=== PATIENT | male | born 1980 | race Caucasian/White ===

== ENCOUNTER 2022-02-26 14:39 | Emergency (ER) | payer OTHER, SELFPAY ==
[2022-02-26 14:43] VITALS: BP 142/90; PULSE 89; RESP 18; TEMP 36.3; O2SAT 99; BMI 28.8
--- NOTE | 2022-02-26 15:12 | DI.CT.S_ITS ---
PROCEDURE: CT ABDOMEN PELVIS W CON INDICATIONS: RLQ pain, nausea TECHNIQUE: After the administration of intravenous contrast, axial sections acquired from the lung bases to the pubic symphysis. Coronal and sagittal reformats were performed. For radiation dose reduction, the following was used: automated exposure control, adjustment of mA and/or kV according to patient size. COMPARISON: None. FINDINGS: These images demonstrate diffuse circumferential wall edema involving the cecum. There is a prominent diverticulum arising from the posterior cecal base measuring approximately 1.7 cm. This contains some hyperdense material trapped within the lumen of the diverticulum. Mild pericecal and Chelly diverticular fat stranding, most pronounced adjacent to the diverticulum. The appendix is normal. Prominent but not threshold enlarged right lower quadrant lymph nodes. Sigmoid diverticulosis. Remaining bowel unremarkable. Normal CT appearance of the liver, spleen, gallbladder, pancreas, adrenal glands, and kidneys. Nonaneurysmal abdominal aorta. Urinary bladder normal. No free pelvic fluid. Included portions of the lung bases are clear. No acute osseous finding. IMPRESSION: Diffuse circumferential cecal wall thickening/edema with an associated diverticulum and adjacent pericecal/Chelly diverticular fat stranding. Findings are suggestive of right-sided diverticulitis, versus another source of cecal inflammation/infection. Follow-up to document both clinical and radiographic resolution is recommended to help exclude an underlying mass. Dictated by: Sam Fournier M.D. on 02/26/2022 at 16:00 Approved by: Sam Fournier M.D. on 02/26/2022 at 16:03
[2022-02-26 15:14] LABS: Add Manual Diff / Slide Review NO; Basophils Absolute Auto 100 /uL (0-100); Basophils Percent Auto 0.3 % (0-2); Eosinophils Absolute Auto 100 /uL (0-450); Eosinophils Percent Auto 0.6 % (2-4); Hematocrit 39.9 % (41-53); Hemoglobin 14.1 g/dL (13.5-17.5); Lymphocytes Absolute Auto 2100 /uL (1100-4500); Lymphocytes Percent Auto 14.4 % (25-40); Mean Corpuscular HGB Conc 35.3 % (30-36); Mean Corpuscular Volume 87.8 fL (80-100); Monocytes Absolute Auto 1100 /uL (0-900); Monocytes Percent Auto 7.1 % (3-14); Neutrophils Absolute Auto 11600 /uL (1500-7000); Neutrophils Percent Auto 77.6 % (50-75); Platelet Count 311 X10^3/uL (150-400); Red Blood Cell Count 4.55 X10^6/uL (4.5-5.9); Red Cell Distribution Width 12.4 % (11.6-14.8); White Blood Cell Count 14.9 X10^3/uL (4.5-11.0)
--- NOTE | 2022-02-26 15:14 | ED.ABDPAIN ---
HPI - Abdominal Pain General Chief Complaint: Abdominal Pain Stated Complaint: Abd pain- right side. Sent by [facility] Time Seen by Provider: 02/26/22 15:14 Source: patient Mode of arrival: Ambulatory Limitations: no limitations History of Present Illness HPI narrative: This is a 41-year-old male comes in with complaint of abdominal pain started out swerve generalized localized low bit to the right lower quadrant but still he her 3rd of all over. Started last couple days been slowly getting worse. Had right flank pain but did not started his flank. States it was sort of a sudden onset but has been worsening. No fevers or chills. He has had some nausea occasional vomiting but not persistent. He has had normal bowel movements with no black or bloody stools. No dysuria urgency or frequency no dark urine or hematuria. He states he is urinating regularly. He has not had similar symptoms in the past. He has history of hypertension. He denies surgeries besides mesh for hernia repair. No known drug allergies. Related Data Previous Rx's Medication Instructions Recorded amoxicillin 875 mg-potassium 1 tab PO Q12H #20 tab 02/26/22 clavulanate 125 mg tablet Allergies Allergy/AdvReac Type Severity Reaction Status Date / Time No Known Drug Allergies Allergy Verified 02/26/22 14:47 Review of Systems Review of Systems ROS Unobtainable: All systems reviewed & are unremarkable except as noted in HPI and below Patient History Social History Smoking Status: Never smoker Smoking Status: Never smoker alcohol intake frequency: a few times a week Alcohol type: beer Substance Use Type: does not use Exam Narrative Exam Narrative: GENERAL: Alert and oriented x three, in moderate distress. HEENT: Head normocephalic, atraumatic, EOMI, pupils reactive, face symmetric, moist mucous membranes NECK: Supple, full range of motion CARDIOVASCULAR: Regular rate and rhythm without murmurs, rubs or gallops. RESPIRATORY: Breath sounds equal bilaterally, no wheezes rales or rhonchi. ABDOMEN: Soft, generalized tenderness greatest at the right lower quadrant. Normoactive bowel sounds all 4 quadrants. No guarding or rebound, rigidity, no mass : No CVA tenderness EXTREMITIES: Normal range of motion, no clubbing or edema. Neurovascularly intact NEUROLOGICAL: Cranial nerves II through XII grossly intact. Moving all extremities. Normal gait. SKIN: Warm, dry, no petechiae, no rashes or lesions. Initial Vital Signs Initial Vital Signs: Vital Signs Temperature 97.3 F L 02/26/22 14:43 Pulse Rate 89 02/26/22 14:43 Respiratory Rate 18 02/26/22 14:43 Blood Pressure 142/90 H 02/26/22 14:43 Pulse Oximetry 99 02/26/22 14:43 Course Orders Ordered: ED Orders 02/26/22 14:50 Complete Blood Count AUTO DIFF Stat Comprehensive Metabolic Panel Stat Lipase Stat 02/26/22 15:12 CT abdomen pelvis w con Stat 02/26/22 16:50 Urine Microscopic Stat Discontinued Medications Amoxicillin/Clavulanate Potassium (Amoxicillin/Clav 875/125 Mg) 1 tab PO NOW ONE Stop: 02/26/22 16:43 Last Admin: 02/26/22 16:53 Dose: 1 tab Documented by: CHRISSY Reevaluation(s) Reevaluation #1: Return to evaluate patient is still quite uncomfortable continues to defer anything for pain. Discussed his findings today, plan for Augmentin to treat potential right-sided diverticulitis, patient recommend a colonoscopy after symptoms have improved. Discussed return precautions. All questions answered. Vital Signs Vital signs: Vital Signs - 8 hr 02/26/22 14:43 02/26/22 17:26 Temperature 97.3 F L Pulse Rate 89 86 Respiratory Rate 18 16 Blood Pressure 142/90 H 127/88 Pulse Oximetry 99 100 MDM - Abdominal Pain Lab Data Result diagrams: 02/26/22 14:50 02/26/22 14:50 Labs: Lab Results 02/26/22 02/26/22 02/26/22 Range/Units 14:50 14:50 16:50 WBC 14.9 H (4.5-11.0) X10^3/uL RBC 4.55 (4.5-5.9) X10^6/uL Hgb 14.1 (13.5-17.5) g/dL Hct 39.9 L (41-53) % MCV 87.8 (80-100) fL MCH 31.0 (26-34) PG MCHC 35.3 (30-36) % RDW 12.4 (11.6-14.8) % Plt Count 311 (150-400) X10^3/uL Neut % (Auto) 77.6 H (50-75) % Lymph % (Auto) 14.4 L (25-40) % Millard % (Auto) 7.1 (3-14) % Eos % (Auto) 0.6 L (2-4) % Baso % (Auto) 0.3 (0-2) % Neut # (Auto) 52986 H (3493-6347) /uL Lymph # (Auto) 2100 (5585-9666) /uL Millard # (Auto) 1100 H (0-900) /uL Eos # (Auto) 100 (0-450) /uL Baso # (Auto) 100 (0-100) /uL Sodium 140 (137-145) mmol/L Potassium 4.0 (3.4-5.1) mmol/L Chloride 103 (98-107) mmol/L Carbon Dioxide 27 (22-32) mmol/L BUN 11 (9-20) mg/dL Creatinine 0.63 L (0.66-1.25) mg/dL Estimated GFR > 60.0 (>60) mL/min BUN/Creatinine Ratio 17.5 (6-22) Glucose 94 (70-100) mg/dL Calcium 9.4 (8.4-10.2) mg/dL Total Bilirubin 1.0 (0.2-1.3) mg/dL AST 27 (17-59) IU/L ALT 22 (<50) IU/L Alkaline Phosphatase 57 (38-126) U/L Total Protein 8.5 H (6.3-8.2) g/dL Albumin 4.9 (3.5-5.0) g/dL Globulin 3.6 (1.7-4.1) g/dL Albumin/Globulin Ratio 1.4 (1.0-2.8) Lipase 42 (23-300) U/L Urine RBC 10-30/hpf H (0-5/HPF) Urine WBC None seen (0-5/HPF) Ur Squamous Epith Cells None seen (0-5/HPF) Urine Bacteria None seen (None) Ur Culture Indicated? Cult not indicated Point of care testing: Urine Dip Bedside Urine Glucose Negative Bedside Urine Bilirubin - Negative Bedside Urine Ketone - Negative Urine Specific [place] 1.010 Bedside Urine Occult Blood +++ Bedside Urine pH 6.0 Bedside Urine Protein - Negative Bedside Urine Urobilinogen - Negative Bedside Urine Nitrite - Negative Bedside Urine Leukocytes - Negative Esterase Imaging Data CT scan - abdomen/pelvis: Radiologist's Impression: [address] [address] [address] Scan Report Signed Patient: Benedict Garza MR#: [id number] : 1980 Acct:[id number] Age/Sex: 41 / M Date of Service: 02/26/22 Loc: ED Accession Number: [id number] ?? Procedure: CT abdomen pelvis w con Ordering Provider: Sondra Herbert D.O. PROCEDURE:? CT ABDOMEN PELVIS W CON ? INDICATIONS:? RLQ pain, nausea ? TECHNIQUE:? After the administration of intravenous contrast, axial sections acquired from the lung bases to the pubic symphysis.? Coronal and sagittal reformats were performed.? For radiation dose reduction, the following was used:? automated exposure control, adjustment of mA and/or kV according to patient size.? ? COMPARISON:? None. ? FINDINGS:? ? These images demonstrate diffuse circumferential wall edema involving the cecum.? There is a prominent diverticulum arising from the posterior cecal base measuring approximately 1.7 cm.? This contains some hyperdense material trapped within the lumen of the diverticulum.? Mild pericecal and Chelly diverticular fat stranding, most pronounced adjacent to the diverticulum.? The appendix is normal.? Prominent but not threshold enlarged right lower quadrant lymph nodes.? Sigmoid diverticulosis.? Remaining bowel unremarkable. ? Normal CT appearance of the liver, spleen, gallbladder, pancreas, adrenal glands, and kidneys.? Nonaneurysmal abdominal aorta.? Urinary bladder normal.? No free pelvic fluid.? Included portions of the lung bases are clear.? No acute osseous finding. ? IMPRESSION: ? Diffuse circumferential cecal wall thickening/edema with an associated diverticulum and adjacent pericecal/Chelly diverticular fat stranding.? Findings are suggestive of right-sided diverticulitis, versus another source of cecal inflammation/infection.? Follow-up to document both clinical and radiographic resolution is recommended to help exclude an underlying mass. ? ? Dictated by: Sam Fournier M.D. on 02/26/2022 at 16:00 ? ? Approved by: Sam Fournier M.D. on 02/26/2022 at 16:03?? MDM Narrative Medical decision making narrative: This is a 41-year-old male comes with complaint of abdominal pain localized to the right size in the sort of generalized. He is quite tender in the right lower quadrant compared to rest of his abdomen. Labs and CT imaging were obtained. Patient has leukocytosis, he has inflammation in the cecum concerning for possible right-sided diverticulitis, appendix appears normal no other acute changes no signs of perforation. Patient started on oral antibiotics, offered pain medication options but he defers, offered antinausea medications but defers. Return precautions discussed. Because of the atypical location based on patient's history recommended colonoscopy in the future after his symptoms have improved for evaluation of the area. All questions answered. Discharge Plan Departure Patient Disposition: Home Clinical Impression: Diverticulitis Instructions: DI for Diverticulitis Activity Restrictions/Additional Instructions: Your imaging shows inflammation of the cecum, your appendix is normal but suggests a right-sided diverticulitis. You should have follow-up for colonoscopy after symptoms have resolved in the next 1-2 months for evaluation. You may take Tylenol up to a 1000 mg every 8 hours and/or ibuprofen up to 800 mg every 8 hours as needed for pain. Take oral antibiotics until gone. Take 1 tablet twice daily Prescription sent to [facility] Please return for fevers, rapidly worsening pain, persistent vomiting, black or bloody stools or other new or concerning symptoms. Prescriptions: New amoxicillin-pot clavulanate 875-125 mg tablet 1 tab PO Q12H Qty: 20 0RF
[2022-02-26 15:25] LABS: Alanine Aminotransferase 22 IU/L (<50); Albumin 4.9 g/dL (3.5-5.0); Albumin Globulin Ratio 1.4 (1.0-2.8); Alkaline Phosphatase 57 U/L (38-126); Aspartate Aminotransferase 27 IU/L (17-59); BUN Creatinine Ratio 17.5 (6-22); Blood Urea Nitrogen 11 mg/dL (9-20); Calcium 9.4 mg/dL (8.4-10.2); Carbon Dioxide 27 mmol/L (22-32); Chloride 103 mmol/L (98-107); Estimated Glomerular Filt Rate > 60.0 mL/min (>60); Globulin 3.6 g/dL (1.7-4.1); Glucose 94 mg/dL (70-100); HEMOLYSIS < 15 (0-50); Lipase 42 U/L (23-300); Sodium 140 mmol/L (137-145); Total Protein 8.5 g/dL (6.3-8.2)
[2022-02-26] MEDS: AMOXICILLIN/CLAV 875/125 MG 1 TAB PO (16:53)
[2022-02-26 17:12] LABS: Bacteria Urine None Seen; Culture Indicated Urine Cult Not Indicated; RBC Urine 10-30/HPF (0-5/HPF); Squamous Epithelial Cell Urine None Seen (0-5/HPF); WBC Urine None Seen (0-5/HPF)
[2022-02-26 17:26] VITALS: BP 127/88; PULSE 86; RESP 16; O2SAT 100
== END 2022-02-26 17:27 | disposition home or self-care (01) ==
PROVIDERS: Emergency Provider Emergency Medicine
DX: K57.32 Diverticulitis of large intestine without perforation or abscess without bleeding (principal)
CPT/HCPCS: 36415; 74177; 80053; 81003; 81015; 83690; 85025; 99283; 99284; Q9967

== ENCOUNTER 2022-06-17 06:48 | Day surgery (SDC) | payer OTHER, SELFPAY ==
[2022-06-17 07:14] VITALS: BP 134/94; PULSE 66; RESP 16; TEMP 36.4; O2SAT 99; BMI 28.7
[2022-06-17] MEDS: SODIUM CHLORIDE 0.9% 1,000 ML 84 ML IV (07:19)
[2022-06-17 07:25] LABS: COVID19 -Nasal RAPID Negative (Negative)
--- NOTE | 2022-06-17 08:00 | PM.HP.1 ---
History of Present Illness History of Present Illness Date Patient Seen: 06/17/22 Time Patient Seen: 08:01 Chief complaint: SDC Narrative: I reviewed my office note. No problems since the visit. Patient History Family & Social History Social History: household members spouse Tobacco & Substance use: Smoking Status Never smoker alcohol intake current alcohol intake frequency a few times a month Substance Use Type does not use Meds Home Medications and Allergies Home Medications Medication Instructions Recorded Confirmed Type lisinopril 10 mg 06/17/22 History Allergies Allergy/AdvReac Type Severity Reaction Status Date / Time No Known Drug Allergies Allergy Verified 06/17/22 07:20 Review of Systems Review of Systems ROS: Yes All systems reviewed with the patient and are negative except as otherwise documented Exam Vital Signs (past 8 hours): - 06/17/22 07:14 Temperature 97.5 F L Pulse Rate 66 Respiratory Rate 16 Blood Pressure 134/94 H Pulse Oximetry 99 Oxygen Delivery Method Room Air Oxygen Delivery Method Room Air Const General: cooperative HENMT Head: normal to inspection Eyes General: appearance normal, both eyes and all related structures Neck Neck: normal visual inspection Chest Chest: normal inspection of the chest Resp Effort & Inspection: normal respiratory effort Cardio Rate: regular rate GI Inspection: normal to inspection Skin General: no rashes or lesions noted Neuro General: patient alert and patient awake Extrem General: normal to inspection and no pedal edema Psych Appearance: grossly normal Objective Labs Labs: Laboratory Results - last 24 hr 06/17/22 07:09 SARS-CoV-2 (PCR) Negative Assessment & Plan Assessment & Plan narrative: 41-year-old with a history of right-sided diverticulitis involving the cecum. Diagnostic colonoscopy is pursued today. Time Spent With Patient Critical Care time: I spent a total of [] minutes of critical care time on this patient's care today; this time is exclusive of procedural time.
--- NOTE | 2022-06-17 08:02 | PM.PREOP ---
Pre-operative Note COVID-19 COVID-19 status: Negative Result date/Date tested (Pos, Neg/Pending): 06/17/22 Criteria for continued procedure: Possibility delay results in more complex future surgery or treatment Interval Note History & Physical reviewed/Exam performed by Physician: Yes Changes to H&P: No ASA Class (for procedural sedation): II
--- NOTE | 2022-06-17 08:22 | P.OP.COLON_ITS ---
Operative Date/Time/Diagnoses Date of procedure: 06/17/22 Time of procedure: 08:23 Pre-op diagnosis: Right-sided diverticulitis Post-op diagnosis: same Procedure & Clinicians Study performed: Colonoscopy Same procedure as scheduled: Yes Indications: History of Right-sided diverticulitis Surgeon: Soy Fortune Procedure Notes SCOAP/Timeout: Done Procedure in detail: After the risks and benefits were explained, written and verbal informed consent was obtained. The patient was brought into the procedure room and placed into the left lateral decubitus position. Please see nurse silver wrapper notes for sedation details. Digital rectal examination was accomplished. The scope was introduced into the patient and advanced under direct visualization to the cecum as identified by the appendiceal orifice and ileocecal valve. The scope was slowly withdrawn to carefully examine the mucosa for any defects or lesions. Comprehensive imaging was accomplished throughout the rectum including the dentate line. The colon was decompressed, the scope was then removed from the patient who tolerated the procedure well. Adult colonoscope Bowel prep adequate Scope withdrawal time: 7 minutes Sedation minutes: 14 Specimen(s): none sent Complications: none Impression: The patient had scattered diverticula in the transverse and ascending colon. I did not appreciate any obvious diverticulae in the cecum. There were a couple of small diverticula associated with the ileocecal valve. No significant polyps mass lesions or inflammatory features identified throughout. Grade 1 hemorrhoids were noted on direct views. Endoscopic diagnosis 1. Right colon diverticulosis 2. Grade 1 hemorrhoids Post-procedure Plan for aftercare: 1. Fiber based bowel regimen for soft regular movements. 2. Repeat colonoscopy 10 years for colon cancer screening. Disposition: PACU
[2022-06-17 08:25] VITALS: BP 108/73; PULSE 64; RESP 15; TEMP 36.2; O2SAT 97
[2022-06-17 08:30] VITALS: BP 121/68; PULSE 70; RESP 12; O2SAT 99
[2022-06-17 08:35] VITALS: BP 113/80; PULSE 65; RESP 15; O2SAT 99
[2022-06-17 08:40] VITALS: BP 117/82; PULSE 60; RESP 19; O2SAT 99
[2022-06-17 08:41] VITALS: BP 118/79; PULSE 61; RESP 16; O2SAT 99
== END 2022-06-17 08:55 | disposition home or self-care (01) ==
PROVIDERS: Referring Provider Internal Medicine Gastroenterology; Visit Provider Internal Medicine Gastroenterology
PROC: 0DJD8ZZ Inspection of Lower Intestinal Tract, Via Natural or Artificial Opening Endoscopic (ICD-10-PCS; CPT 45378; principal; 2022-06-17 08:00)
DX: Z09 Encounter for follow-up examination after completed treatment for conditions other than malignant neoplasm (principal); Z87.19 Personal history of other diseases of the digestive system; Z20.822 Contact with and (suspected) exposure to COVID-19; K57.30 Diverticulosis of large intestine without perforation or abscess without bleeding
CPT/HCPCS: 45378; 87635; J2704

== ENCOUNTER 2022-10-18 11:50 | Emergency (ER) | payer OTHER, SELFPAY ==
[2022-10-18 11:53] VITALS: BP 141/83; PULSE 71; RESP 18; TEMP 36.2; O2SAT 99; BMI 28.2
[2022-10-18] MEDS: SODIUM CHLORIDE 0.9% 1,000 ML 1000 ML IV (12:18)
[2022-10-18] MEDS: ONDANSETRON 4 MG/2 ML INJ IV (12:18)
[2022-10-18 12:26] LABS: Add Manual Diff / Slide Review NO; Basophils Absolute Auto 0 /uL (0-100); Basophils Percent Auto 0.3 % (0-2); Eosinophils Absolute Auto 100 /uL (0-450); Eosinophils Percent Auto 0.8 % (2-4); Hematocrit 40.8 % (41-53); Hemoglobin 14.2 g/dL (13.5-17.5); Lymphocytes Absolute Auto 1600 /uL (1100-4500); Lymphocytes Percent Auto 11.8 % (25-40); Mean Corpuscular HGB Conc 34.7 % (30-36); Mean Corpuscular Hemoglobin 30.7 PG (26-34); Mean Corpuscular Volume 88.3 fL (80-100); Monocytes Absolute Auto 1000 /uL (0-900); Monocytes Percent Auto 7.6 % (3-14); Neutrophils Absolute Auto 10500 /uL (1500-7000); Neutrophils Percent Auto 79.5 % (50-75); Platelet Count 315 X10^3/uL (150-400); Red Blood Cell Count 4.62 X10^6/uL (4.5-5.9); Red Cell Distribution Width 12.5 % (11.6-14.8); White Blood Cell Count 13.2 X10^3/uL (4.5-11.0)
[2022-10-18 12:34] LABS: Alanine Aminotransferase 25 IU/L (<50); Albumin 4.5 g/dL (3.5-5.0); Albumin Globulin Ratio 1.2 (1.0-2.8); Alkaline Phosphatase 57 U/L (38-126); Aspartate Aminotransferase 23 IU/L (17-59); BUN Creatinine Ratio 18.8 (6-22); Bilirubin Total 1.2 mg/dL (0.2-1.3); Blood Urea Nitrogen 13 mg/dL (9-20); Calcium 9.2 mg/dL (8.4-10.2); Carbon Dioxide 27 mmol/L (22-32); Chloride 100 mmol/L (98-107); Estimated Glomerular Filt Rate > 60 mL/min (>60); Globulin 3.8 g/dL (1.7-4.1); Glucose 103 mg/dL (70-100); HEMOLYSIS < 15 (0-50); Lipase 56 U/L (23-300); Potassium 3.6 mmol/L (3.4-5.1); Sodium 139 mmol/L (137-145); Total Protein 8.3 g/dL (6.3-8.2)
[2022-10-18 14:15] VITALS: BP 132/81; PULSE 62; RESP 18; TEMP 36.4; O2SAT 100
--- NOTE | 2022-10-18 14:29 | ED_ITS ---
HPI - General Adult General Chief complaint: Abdominal Pain Stated complaint: lower LT quad abd pain t-4 Time Seen by Provider: 10/18/22 13:59 Source: patient Mode of arrival: Ambulatory Limitations: no limitations History of Present Illness HPI narrative: 41-year-old male who is here for evaluation of left-sided abdominal tenderness for the past couple days. He has had diverticulitis before but that was diagnos ed on the right side of his abdomen. He did have a CT scan to diagnose this. He states that he is never had diverticulitis on the left side however the discomfort on the left side is very similar to his prior diagnosis. Did have some constipation for which she took a laxative. Has had several loose bowel movements since then. That is not changed any of his abdominal pain. There has been no blood. No fevers. No urinary symptoms. Some vomiting initially but that has now resolved as well. Related Data Home Medications Medication Instructions Recorded Confirmed lisinopril 10 mg tablet 10 mg PO DAILY 10/18/22 10/18/22 Previous Rx's Medication Instructions Recorded ciprofloxacin HCl 500 mg tablet 500 mg PO BID 10 days #20 tabs 10/18/22 (Cipro) metronidazole 500 mg tablet 500 mg PO TID 10 days #30 tabs 10/18/22 ondansetron 4 mg disintegrating 4 mg PO Q6H PRN nausea and 10/18/22 tablet vomiting #10 tabs Allergies Allergy/AdvReac Type Severity Reaction Status Date / Time No Known Drug Allergies Allergy Verified 10/18/22 11:57 Review of Systems Constitutional Constitutional: Reports system reviewed and no additional complaints, except as documented Cardiovascular Cardiovascular: Reports system reviewed and no additional complaints, except as documented Respiratory Respiratory: Reports system reviewed and no additional complaints, except as documented Gastrointestinal Gastrointestinal: Reports system reviewed and no additional complaints, except as documented Genitourinary Genitourinary: Reports system reviewed and no additional complaints, except as documented Musculoskeletal Musculoskeletal: Reports system reviewed and no additional complaints, except as documented Integumentary/Breasts Skin/Breast: Reports system reviewed and no additional complaints, except as documented Neurologic Neurologic: Reports system reviewed and no additional complaints, except as documented Hematologic/Lymphatic On Anticoagulants: No Patient History Medical History Hypertension Social History household members: spouse Smoking Status: Never smoker alcohol intake: current Smoking Status: Never smoker alcohol intake frequency: a few times a month Alcohol type: beer Substance Use Type: does not use Exam Initial Vital Signs Initial Vital Signs: Vital Signs Temperature 97.1 F L 10/18/22 11:53 Pulse Rate 71 10/18/22 11:53 Respiratory Rate 18 10/18/22 11:53 Blood Pressure 141/83 H 10/18/22 11:53 Pulse Oximetry 99 10/18/22 11:53 Oxygen Delivery Method 10/18/22 11:53 HENMT Head: normal to inspection and normocephalic Resp Effort & Inspection: normal respiratory effort Auscultation: clear to auscultation bilaterally Cardio Rate: regular rate Rhythm: regular rhythm GI Palpation: soft, No firm, No guarding and tender (Left side abdomen) Back/Spine/Pelvis Back: No CVA tenderness Skin General: no rashes or lesions noted Neuro General: patient alert, patient awake and moves all extremities Extrem General: capillary refill normal Course Orders Ordered: ED Orders 10/18/22 12:05 Complete Blood Count AUTO DIFF Stat Comprehensive Metabolic Panel Stat Lipase Stat Discontinued Medications Sodium Chloride (Normal Saline 0.9%) 1,000 mls @ 1,000 mls/hr IV BOLUS ONE Stop: 10/18/22 13:11 Last Infusion: 10/18/22 13:14 Dose: 0 mls/hr Documented By: Admin: 10/18/22 12:18 Dose: 1,000 mls/hr Documented By: [facility] Ondansetron HCl (Ondansetron 4 Mg/2 Ml Inj) 4 mg IV NOW ONE Stop: 10/18/22 12:00 Last Admin: 10/18/22 12:18 Dose: 4 mg Documented By: [facility] Vital Signs Vital signs: Vital Signs - 8 hr 10/18/22 11:53 10/18/22 14:15 Temperature 97.1 F L 97.6 F Pulse Rate 71 62 Respiratory Rate 18 18 Blood Pressure 141/83 H 132/81 Pulse Oximetry 99 100 Oxygen Delivery Method Room Air Room Air Medical Decision Making Lab Data Lab results reviewed: Yes I reviewed the patient's lab results. Result diagrams: 10/18/22 12:05 10/18/22 12:05 Labs: Lab Results 10/18/22 10/18/22 Range/Units 12:05 12:05 WBC 13.2 H (4.5-11.0) X10^3/uL RBC 4.62 (4.5-5.9) X10^6/uL Hgb 14.2 (13.5-17.5) g/dL Hct 40.8 L (41-53) % MCV 88.3 (80-100) fL MCH 30.7 (26-34) PG MCHC 34.7 (30-36) % RDW 12.5 (11.6-14.8) % Plt Count 315 (150-400) X10^3/uL Neut % (Auto) 79.5 H (50-75) % Lymph % (Auto) 11.8 L (25-40) % Gordon % (Auto) 7.6 (3-14) % Eos % (Auto) 0.8 L (2-4) % Baso % (Auto) 0.3 (0-2) % Neut # (Auto) 52308 H (9707-2835) /uL Lymph # (Auto) 1600 (3857-7669) /uL Gordon # (Auto) 1000 H (0-900) /uL Eos # (Auto) 100 (0-450) /uL Baso # (Auto) 0 (0-100) /uL Sodium 139 (137-145) mmol/L Potassium 3.6 (3.4-5.1) mmol/L Chloride 100 (98-107) mmol/L Carbon Dioxide 27 (22-32) mmol/L BUN 13 (9-20) mg/dL Creatinine 0.69 (0.66-1.25) mg/dL Estimated GFR > 60 (>60) mL/min BUN/Creatinine Ratio 18.8 (6-22) Glucose 103 H (70-100) mg/dL Calcium 9.2 (8.4-10.2) mg/dL Total Bilirubin 1.2 (0.2-1.3) mg/dL AST 23 (17-59) IU/L ALT 25 (<50) IU/L Alkaline Phosphatase 57 (38-126) U/L Total Protein 8.3 H (6.3-8.2) g/dL Albumin 4.5 (3.5-5.0) g/dL Globulin 3.8 (1.7-4.1) g/dL Albumin/Globulin Ratio 1.2 (1.0-2.8) Lipase 56 (23-300) U/L [facility] Narrative Medical decision making narrative: Leukocytosis of 13. He has had diverticulitis in the past but he states that it was on his right side. He states the pain that he is having right now was on the right side of his abdomen he would be convinced that this was a reoccurrence of his diverticulitis. He is a benign exam. We did discuss the risks and benefits of obtaining a CT scan today for definitive diagnosis and also to evaluate for potential complications such as abscess or perforation versus just treating with antibiotics. After this discussion the patient opted just to be treated with antibiotics. I agree with this decision. Will send home with antibiotics and strict return precautions. He expressed understanding and agreement. Discharge Plan Departure Patient Disposition: Home Clinical Impression: Diverticulitis, Abdominal pain Instructions: DI for Diverticulitis, DI for Abdominal Pain-Adult Activity Restrictions/Additional Instructions: I do recommend that you take the antibiotics as directed. [facility] Follow-up with your medical department. Return to the emergency department for any new or worsening symptoms. Prescriptions: New ciprofloxacin HCl [Cipro] 500 mg tablet 500 mg PO BID 10 Days Qty: 20 0RF metronidazole 500 mg tablet 500 mg PO TID 10 Days Qty: 30 0RF ondansetron 4 mg tablet,disintegrating 4 mg PO Q6H PRN (Reason: nausea and vomiting) Qty: 10 0RF No Action lisinopril 10 mg Tablet 10 mg PO DAILY Referrals: ProviderVishnu [Primary Care Provider] - Visit Report Forms: Patient Portal/API
== END 2022-10-18 14:42 | disposition home or self-care (01) ==
PROVIDERS: Emergency Provider Emergency Medicine
DX: K57.92 Diverticulitis of intestine, part unspecified, without perforation or abscess without bleeding (principal); R10.32 Left lower quadrant pain
CPT/HCPCS: 36415; 80053; 83690; 85025; 96361; 96374; 99284; J2405

== ENCOUNTER → 2022-11-14 09:30 | Outpatient (CLI) | payer OTHER, SELFPAY ==
--- NOTE | 2022-11-14 09:35 | DI.RAD.S_ITS ---
PROCEDURE: FL SHOULDER INJECTION MR/CT LT INDICATIONS: Pain in left shoulder COMPARISON: None. TECHNIQUE: The indications, alternatives, benefits, risks, and complications of the procedure were explained to the patient. Written informed consent was obtained and placed in the chart. The shoulder was examined fluoroscopically and a site for needle placement chosen for entry into the glenohumeral joint from an anterior approach. The skin was prepped and draped in a sterile fashion, and 1% lidocaine infiltrated from skin down to joint capsule. A spinal needle was inserted into the glenohumeral joint, and a small amount of iodinated contrast media injected to confirm intra-articular placement of the needle tip. This was followed by approximately 12 mL dilute solution of a gadolinium containing MR contrast agent. The needle was removed and a dressing was applied. The patient was given postprocedural instructions and sent to the MR suite for MR imaging. FINDINGS: A single fluoroscopic spot image demonstrates intra-articular location of injected iodinated contrast. IMPRESSION: Successful fluoroscopically guided administration of dilute Gadolinium solution into the shoulder joint for MR arthrogram. Dictated by: Roselyn Subramanian M.D. on 11/14/2022 at 10:29 Approved by: Roselyn Subramanian M.D. on 11/14/2022 at 10:30
--- NOTE | 2022-11-14 09:35 | DI.MRI.S_ITS ---
PROCEDURE: MR SHOULDER LT W CON INDICATIONS: Pain in left shoulder TECHNIQUE: After the administration of 12 mL of dilute intra-articular Gadolinium contrast, oblique coronal T1 and T2 spin echo with fat saturation, oblique sagittal T1 spin echo with and without fat saturation, oblique sagittal T2 fast spin echo with fat saturation, axial T1 spin echo with fat saturation through the shoulder. COMPARISON: None. FINDINGS: Image quality: Excellent. Rotator cuff: Low-grade articular and bursal surface partial thickness tear involving distal supraspinatus at its insertion on the humeral head is seen extending to musculotendinous junction. Distal infraspinatus tendon is intact. No full-thickness rotator cuff tendon rupture. Distal subscapularis tendon is intact. No significant rotator cuff muscle atrophy on sagittal images. Bones and bursae: No bone marrow contusions or fractures. No acromioclavicular joint degeneration. The acromion demonstrates conventional anatomy, without an os acromiale. Capsule and soft tissues: Signal abnormality and contour irregularity with contrast extension in superior anterior labrum at 1 to 2 o'clock position is seen suggestive of superior anterior labral tear. The glenohumeral ligaments appear intact. The long head of the biceps tendon demonstrates normal location and morphology. The rotator interval appears normal, without fibrosis. The coracohumeral ligament is of normal thickness. No intra-articular bodies. IMPRESSION: 1. Low-grade articular and bursal surface partial thickness tear involving distal supraspinatus extending to musculotendinous junction. Distal infraspinatus and subscapularis tendons are intact. No full-thickness rotator cuff tendon rupture. 2. No marrow edema. No fracture or dislocation. No gross intra-articular loose bodies. 3. Suggestion of subtle superior anterior labral tear at 1-2 o'clock position. Dictated by: Raj Schaffer M.D. on 11/14/2022 at 12:02 Approved by: Raj Schaffer M.D. on 11/14/2022 at 12:04
== END ==
PROVIDERS: Referring Provider Student in an Organized Health Care Education/Training Program; Visit Provider Student in an Organized Health Care Education/Training Program
DX: M75.112 Incomplete rotator cuff tear or rupture of left shoulder, not specified as traumatic (principal); M25.512 Pain in left shoulder
CPT/HCPCS: 23350; 73222